=== PATIENT | male | born 1965 | race Caucasian/White ===

== ENCOUNTER 2024-11-28 08:39 | Outpatient (CLI) | payer BC, SELFPAY | END 2024-11-28 08:40 | disposition home or self-care (01) | LOC: NFLDREF 12-02 03:56 | PROVIDERS: PCP Student in an Organized Health Care Education/Training Program; Referring Provider Student in an Organized Health Care Education/Training Program | DX: R35.0 Frequency of micturition (principal) | CPT/HCPCS: 87086 ==